=== PATIENT | female | born 1950 | race Caucasian/White ===

== ENCOUNTER 2019-01-12 10:47 | Observation (INO) | payer OTHER ==
[2019-01-12] VITALS (9 sets, daily range): BP systolic 133–166; BP diastolic 66–99
[~2019-01-12] VITALS: Ht 170.2 cm; Wt 103.4 kg
[~2019-01-12 10:47] MED LIST: DEXILANT60 MG PO; GABAPENTIN 100100 MG PO; HYDROXYCHLOROQ200 M1 PO; IBUPROFEN 800800 M1 PO; ULTRAM ER100 MG; [UNRECOGNIZED DRUG - CODE] PO
[2019-01-12] MEDS ORDERED: LISINOPRIL20 MG PO (11:27)
[2019-01-12] MEDS ORDERED: DILTIAZEM 24HR180 M3 PO (11:27)
[2019-01-12] MEDS ORDERED: PROTONIX40 M1 PO (11:28)
[2019-01-12] MEDS ORDERED: AMARYL2 MG PO (11:28)
[2019-01-12] MEDS ORDERED: JANUVIA100 MG PO (11:29)
[2019-01-12] MEDS ORDERED: HYDROXYCHLOROQ200 M1 PO (11:29)
[2019-01-12] MEDS ORDERED: TESSALON PERLE100 MG PO (11:30)
[2019-01-12] MEDS ORDERED: CENTRUM SILVER1 EAC2 PO (11:30)
[2019-01-12 11:52] LABS: HEMATOCRIT 39.3 % (37.0-47.0); HEMOGLOBIN 13.4 gm/dL (12.0-15.0); MCH 32.9 pg (26.0-34.0); MCHC 34.1 g/dL (28.0-37.0); MCV 96.5 fL (80.0-100.0); MPV 9.8 fl. (7.2-11.1); RBC 4.07 mil/uL (4.20-5.00); RDW-CV 14.1 % (10.5-14.5); WBC 4.6 thou/uL (4.0-11.0)
[2019-01-12 11:59] LABS: APTT 24.3 Seconds (25.0-31.3); PROTIME 10.6 Seconds (9.20-11.50)
[2019-01-12 12:02] LABS: ALKALINE PHOSPHATASE 71 U/L (46-116); ANION GAP 9 mmol/L (7-16); BUN 16 mg/dL (7-18); CALCIUM 9.3 mg/dL (8.5-10.1); CHLORIDE 103 mmol/L (98-107); CHOLESTEROL 214 mg/dL (<200); CO2 28 mmol/L (21-32); GLUCOSE 184 mg/dL (70-99); HDL CHOLESTEROL 66 mg/dL (>40); LDL CHOLESTEROL 120 mg/dL (<100); POTASSIUM 4.3 mmol/L (3.5-5.1); SGOT 17 U/L (15-37); SGPT 28 U/L (30-65); SODIUM 140 mmol/L (136-145); TC:HDL 3.2 Ratio (Not establshd); TOTAL BILIRUBIN 0.4 mg/dL (<0.1-1.0); TRIGLYCERIDE 143 mg/dL (<150); VLDL 29 mg/dL (<40)
[2019-01-12 12:03] LABS: SERUM ASSESSMENT Clear
[2019-01-13 04:00] VITALS: BP 143/58
--- NOTE | 2019-01-13 04:39 | NUR ---
INITAL ASSESSMENT COMPLETED CHARTED. TRACING SR ON MONITOR. MEDICATIONS GIVEN PER EMAR. PT UP SBA WITH STEADY GAIT. DRESSING TO RIGHT WRIST C/D/I. HOURLY ROUNDING IN PLACE FOR PT SAFETY. CLWR.
[2019-01-13 05:28] LABS: HEMATOCRIT 34.6 % (37.0-47.0); HEMOGLOBIN 11.8 gm/dL (12.0-15.0); MCH 32.6 pg (26.0-34.0); MCV 95.7 fL (80.0-100.0); MPV 9.8 fl. (7.2-11.1); RBC 3.61 mil/uL (4.20-5.00); RDW-CV 14.1 % (10.5-14.5); WBC 6.3 thou/uL (4.0-11.0)
[2019-01-13 05:49] LABS: ALBUMIN 3.4 g/dL (3.4-5.0); POTASSIUM 4.1 mmol/L (3.5-5.1); TOTAL BILIRUBIN 0.5 mg/dL (<0.1-1.0); TOTAL PROTEIN 6.8 g/dL (6.4-8.2)
[2019-01-13 06:01] LABS: TROPONIN-I LEVEL 1.91 ng/mL (<0.06)
[2019-01-13 10:29] VITALS: BP 143/58
--- NOTE | 2019-01-13 11:33 | NUR ---
ASSUMED CARE OF PATIENT THIS AM AT 0730. PATIENT IS ALERT AND ORIENTED X 4. SHE DENIES CHEST PAIN AND SOA. RIGHT RADIAL CATH SITE IS INTACT. NO HEMATOMA. TELE SHOWS NSR. CARDIOLOGY IN TO ROUND AND DISCHARGE ORDERS WRITTEN. PATIENT MEDICATED FOR RIGHT WRIST PAIN.
[2019-01-13] MEDS ORDERED: BRILINTA90 MG PO (12:11)
[2019-01-13] MEDS ORDERED: ASPIR 8181 MG PO (12:15)
[2019-01-13] MEDS ORDERED: NITROGLYCERIN0.4 MG SUBLING (12:18)
[2019-01-13] MEDS ORDERED: LIPITOR 20 MG T20 M1 PO (12:23)
[2019-01-13 12:39] VITALS: BP 151/57
[2019-01-13 12:42] VITALS: BP 143/58
--- NOTE | 2019-01-13 14:30 | EKG ---
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 : 1950 Requested By: Cam Turner Order Number: [id number] Ciro JOSHUA: Martinez Gutierrez Measurements Intervals [place] Rate: 75 P: 37 NH: 180 QRS: -24 QRSD: 79 T: -12 QT: 452 QTc: 505 Interpretive Statements Sinus rhythm Inferior infarct, age indeterminate Probable anterior infarct, age indeterminate Prolonged QT interval No previous ECG available for comparison Electronically Signed On 01-13-2019 14:30:18 CDT by Martinez Gutierrez [email or web address] <ELECTRONICALLY SIGNED> By: Martinez Gutierrez MD, FAC 01/13/19 1430 1140 1140 Martinez Gutierrez MD, [facility] /EPI
--- NOTE | 2019-01-13 14:33 | EKG ---
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: KEITH : 1950 Requested By: Martinez Gutierrez Order Number: [id number] Ciro MD: Martinez Gutierrez Measurements Intervals [place] Rate: 77 P: 37 MT: 182 QRS: -20 QRSD: 82 T: -14 QT: 404 QTc: 458 Interpretive Statements Sinus rhythm Inferior infarct, 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
--- NOTE | 2019-01-13 14:35 | EKG ---
[place] [address] ELECTROCARDIOGRAM REPORT Name: HILLARY BUTLER Room: [address]R.#: [id number] Admission: 01/12/19 Attend Phys: Cam Turner MD Discharge: 01/13/19 Date of : 50 Report #: [id number] THIS REPORT FOR: //name// 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
--- NOTE | 2019-01-13 14:37 | EKG ---
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: natanael : 1950 Requested By: Martinez Gutierrez Order Number: [id number] Ciro MD: Martinez Gutierrez Measurements Intervals [place] Rate: 80 P: 41 OR: 173 QRS: -15 QRSD: 78 T: -8 QT: 411 QTc: 475 Interpretive Statements Sinus rhythm Inferior infarct, old Anteroseptal infarct, age indeterminate No previous ECG available for comparison Electronically Signed On 01-13-2019 14:37:21 CDT by Martinez Gutierrez [email or web address] <ELECTRONICALLY SIGNED> By: Martinez Gutierrez MD, [facility] 01/13/19 1437 6 6 Martinez Gutierrez MD, FACC /EPI
--- NOTE | 2019-01-13 15:32 | CARD ---
[address] [address] CARDIAC CATH REPORT Name: HILLARY BUTLER Room: [address] Catherine Almonte#: [id number] Admission: 01/12/19 Attend Phys: Cam Turner MD Discharge: 01/13/19 Date of : 50 Report #: [id number] THIS REPORT FOR: //name// APPROVED REPORT Study performed: 01/12/2019 13:12:25 Patient Details Patient Status: Out-Patient Room #: The patient is a 68 year-old female Event Personnel Savi Pyle RN RN, Adriana Romero Monitor, Gilberto Betancur POULTRY FIELD SERVICE TECHNICIAN Scrub, Martin Cobos Scrub, Cam Turner Glass Belt Sander, Martinez Gutierrez Basket Sorter Procedures Performed Left Heart Cath w/LT VGram [id number] LHCLV SARA Revasc Chronic Ttl Occl Single LAD C9607 CTOREVSING , Selective Right and Left Coronary Angiography Indication Positive stress test Risk Factors Hypercholesterolemia, Hypertension Admission/Lab Medications/Medications given during procedure Aspirin, Platelet Aff. Inhib., Angiomax bolus and infusion Procedure Narrative The patient was brought electively to the Cardiac Catheterization Laboratory and was prepped and draped in a sterile manner. The right wrist was infiltrated with 2% Lidocaine subcutaneous anesthesia. A [place] 6 FR sheath was inserted into the . Coronary angiography was performed using coronary diagnostic catheters. The right coronary system was accessed and visualized with a 3DRC 5fr catheter. The left coronary system was accessed and visualized with a JL 3.5 5fr catheter. The left ventricle was accessed and visualized with a PC: Angled Pig 5fr catheter. Left ventricular/Aortic Valve gradient assessed via catheter pullback. The patient tolerated the procedure well and there were no complications associated with the procedure. There was no hematoma. Intra[place] [address] CARDIAC CATH REPORT Name: HILLARY BUTLER DIANA Room: [address] Catherine M.R.#: [id number] Admission: 01/12/19 Attend Phys: Cam Turner MD Discharge: 01/13/19 Date of : 50 Report #: [id number] Fentanyl 175 mcg Dose: 107 mGy Contrast Type and Amount: Visipaque 580 ml Coronary Angiography The patient's coronary anatomy is right dominant. Diagnostic Cath Left Main 0% narrowing LAD 80% heavily calcified proximal LAD stenosis with 100% mid vessel stenosis with ALLEY-3 flow the distal LAD via Micro- channels in the mid LAD Circumflex 0% narrowing Right Coronary Dominant vessel with 20% mid vessel narrowing Left Ventriculography The left ventricle is normal in size with contractility. The left ventricular ejection fraction is estimated to be 55-60%. Left ventricular wall motion abnormalities are present. Apical dyskinesis is noted Hemodynamics The aortic pressure is 109/54 mmHg with a mean of 78 mmHg. The left ventricular end diastolic pressure is 8 mmHg. There was no gradient across the aortic valve upon pullback. PCI Technique Lesion Anticoagulation was achieved with Angiomax. Patient was preloaded with Angiomax IV 16 ml. Percutaneous coronary intervention was performed on the mid left anterior descending artery segment. The lesion stenosis prior to intervention was 100% with ALLEY 3 flow. A 6F XB LAD 3.5 Guide Catheter was used to engage the ostium. A IG: ProwaterFlex 180CM Interventional Guidewire was used to cross the lesion. BALLOON DILATION A Balloon catheter Mini Trek RX 1.2X8 was inserted and inflated up to 14.00atm for 8seconds. Additional Inflation: 18.00atm for 11seconds. STENT DEPLOYMENT A drug-eluting stent Jordan RX Stent 2.18R10wh was inserted and inflated up to 18.00atm for 16seconds. POST STENT DEPLOYMENT [place] [address] CARDIAC CATH REPORT Name: HILLARY BUTLER DIANA Room: [address]#: [id number] Admission: 01/12/19 Attend Phys: Cam Turner MD Discharge: 01/13/19 Date of : 50 Report #: [id number] A Balloon catheter NC Trek RX 2.5 X 12 was inserted and inflated up to 14.00atm for 3seconds. Final angiography reveals 0 % stenosis with ALLEY 3 flow. COMMENTS I was able to wire the area of chronic total occlusion the mid LAD by advancing a support catheter, a fine cross catheter and traversing the Micro- channels with a soft tip wire and subsequently 1.2 x 8 mm trek PCI Technique Lesion 2 Percutaneous Coronary Intervention was performed on the proximal left anterior descending artery segment. The lesion stenosis prior to intervention was 80% with ALLEY 3 flow. Balloon Dilation A Balloon catheter AngioSculpt PTCA 2.5 X 10mm was inserted and inflated up to 18atm for 15seconds. Stent Deployment A drug-eluting stent Jordan RX Stent 2.22L59db was inserted and inflated up to 15.00atm for 16seconds. Final angiography reveals 10 % stenosis with ALLEY 3 flow. Comments I performed angioplasty atherotomy/atherectomy and stenting of the proximal LAD, heavily calcified segment Conclusion #1 significant coronary artery disease characterized by the following: A 80% heavily calcified proximal LAD stenosis with 100% chronic total occlusion of the mid LAD with filling of the distal LAD via microchannels B 20% narrowing of the midportion of the dominant right coronary artery #2 normal global left ventricular systolic function estimate ejection fraction of 55-60% with apical dyskinesis #3 normal left-[place] [address] CARDIAC CATH REPORT Name: HILLARY BUTLER Room: [address] Catherine Almonte#: [id number] Admission: 01/12/19 Attend Phys: Cam Turner MD Discharge: 01/13/19 Date of : 50 Report #: [id number] #4 successful percutaneous coronary intervention with recanalization a chronic total occlusion of the mid LAD and deployment of a drug-eluting stent with 0% residual narrowing #5 successful angioplasty arthrotomy/atherectomy and stenting of the proximal LAD with 10% residual narrowing and ALLEY-3 flow to the distal vessel Recommendations Cardiac Risk Reduction Program Aggressive Medical Therapy Medications Administered Aspirin (any) Ticagrelor Diagnostic Cath Approved by: Cam Turner MD Date/Time: 01/13/2019 15:30:14 <ELECTRONICALLY SIGNED> By: Martinez Gutierrez MD, FACC 01/13/19 1532 153 [id number] Gutierrez MD, FACC /INF
--- NOTE | 2019-01-15 11:33 | D ---
[address] [address] DISCHARGE SUMMARY Name: HILLARY BUTLER Room: [address] Catherine Almonte#: [id number] Admission: 01/12/19 Attend Phys: Cam Turner MD Discharge: 01/13/19 Date of : 50 Report #: [id number] THIS REPORT FOR: //name// CC: Cam CuetoStella DATE OF SERVICE: 01/13/2019 FINAL DISCHARGE DIAGNOSES: 1. Chest discomfort. 2. Abnormal stress echocardiogram. 3. Coronary artery disease. 4. Hypertension. 5. Dyspnea on exertion. 6. Diabetes mellitus. 7. Hyperlipoproteinemia. PROCEDURES: 01/12/2019 -- left heart catheterization, left ventriculography, selective coronary arteriography, percutaneous coronary intervention to chronic total occlusion of the mid LAD and high-grade proximal LAD stenosis. The patient is a pleasant 68-year-old female with dyspnea on exertion and some chest discomfort. She had a recently abnormal stress echocardiogram, and Dr. Turner recommended proceeding with cardiac catheterization in that context with the risk factors of diabetes and hyperlipidemia as well as hypertension. He performed cardiac catheterization on 01/12/2019 which revealed chronic total occlusion in the mid LAD with 80% calcified proximal LAD stenosis. There were modest narrowings of the right coronary artery and circumflex. I performed percutaneous coronary intervention with recanalization of the chronic total occlusion of the mid LAD with atherectomy and stenting of the proximal LAD with a 10% proximal and 0% mid LAD narrowings following the aforementioned intervention with ALLEY 3 flow of the distal vessel. Troponin daria minimally to 1.91 after recanalization of the SUPERVISOR BOAT OUTFITTING of the mid LAD. The patient had no chest discomfort and ambulated in the hallways without difficulty. There was good hemostasis at the right radial site of catheterization. LABORATORY DATA: On 01/13 revealed sodium 149, potassium 4.1, BUN 13, creatinine 1.0. White blood cell count 6300, with hemoglobin 11.8, hematocrit 34.6, platelets 174,000. The patient was discharged to home on the following medications: Aspirin 81 mg daily, diltiazem extended release 180 mg daily, gabapentin [address] t[address] [place] [address] DISCHARGE SUMMARY Name: HILLARY BUTLER [facility] Room: [address] Catherine Almonte#: [id number] Admission: 01/12/19 Attend Phys: Cam Turner MD Discharge: 01/13/19 Date of : 50 Report #: [id number] glimepiride 2 mg b.i.d., hydroxychloroquine 200 mg 2 tablets daily, ibuprofen 800 mg q.8 hours as needed, lisinopril 20 mg b.i.d., multivitamin with mineral one tablet daily, pantoprazole 40 mg b.i.d., Januvia 100 mg daily, ticagrelor or Brilinta 90 mg b.i.d. with 180 mg loading dose given periprocedurally, Tessalon Perles 2 tablets 100 mg t.i.d. p.r.n., p.r.n. sublingual nitroglycerin, atorvastatin 40 mg at bedtime with an LDL cholesterol noted to be 120 mg percent. She is scheduled to see nurse practitioner in approximately 2 weeks for clinical followup. <ELECTRONICALLY SIGNED> By: Martinez Gutierrez MD, [facility] 01/15/19 1133 1008 [id number] Gutierrez MD, FAC /nt
== END 2019-01-13 13:30 | disposition home or self-care (01) ==
LOC: M.CL 10:47 → M.TBA-CV 16:19 → M.2W 16:19
PROVIDERS: Internal Medicine; ADMIT Internal Medicine Cardiovascular Disease
DX: I25.10 Atherosclerotic heart disease of native coronary artery without angina pectoris (principal); I10 Essential (primary) hypertension; E11.9 Type 2 diabetes mellitus without complications; E78.5 Hyperlipidemia, unspecified; E78.00 Pure hypercholesterolemia, unspecified; R06.09 Other forms of dyspnea; R94.39 Abnormal result of other cardiovascular function study

== ENCOUNTER 2019-06-21 12:19 | Observation (INO) | payer OTHER ==
[~2019-06-21] VITALS: Ht 170.2 cm; Wt 94.8 kg
[2019-06-21] VITALS (14 sets, daily range): BP systolic 125–168; BP diastolic 53–82
[~2019-06-21 12:19] MED LIST changes: +AMARYL2 MG PO; +ASPIR 8181 MG PO; +BRILINTA90 MG PO; +CENTRUM SILVER1 EAC2 PO; +DILTIAZEM 24HR180 M3 PO; +JANUVIA100 MG PO; +LIPITOR 20 MG T20 M1 PO; +LISINOPRIL20 MG PO; +NITROGLYCERIN0.4 MG SUBLING; +PROTONIX40 M1 PO; +TESSALON PERLE100 MG PO
[2019-06-21 13:08] LABS: HEMATOCRIT 38.2 % (37.0-47.0); HEMOGLOBIN 13.1 gm/dL (12.0-15.0); MCH 33.8 pg (26.0-34.0); MCHC 34.3 g/dL (28.0-37.0); MCV 98.6 fL (80.0-100.0); MPV 9.8 fl. (7.2-11.1); RBC 3.88 mil/uL (4.20-5.00); WBC 5.2 thou/uL (4.0-11.0)
[2019-06-21] MEDS ORDERED: EFFIENT10 MG PO (13:16)
[2019-06-21 13:18] LABS: APTT 21.3 Seconds (25.0-31.3); INR 1.2; PROTIME 12.2 Seconds (9.20-11.50)
[2019-06-21 13:27] LABS: ANION GAP 6 mmol/L (7-16); BUN 17 mg/dL (7-18); CALCIUM 9.5 mg/dL (8.5-10.1); CHLORIDE 104 mmol/L (98-107); CO2 30 mmol/L (21-32); GLUCOSE 104 mg/dL (70-99); POTASSIUM 3.7 mmol/L (3.5-5.1); SODIUM 140 mmol/L (136-145)
[2019-06-21 13:31] LABS: ALBUMIN 4.1 g/dL (3.4-5.0); ALKALINE PHOSPHATASE 113 U/L (46-116); CHOLESTEROL 152 mg/dL (<200); HDL CHOLESTEROL 73 mg/dL (>40); LDL CHOLESTEROL 68 mg/dL (<100); SERUM ASSESSMENT Clear; SGOT 33 U/L (15-37); SGPT 57 U/L (30-65); TC:HDL 2.1 Ratio (Not establshd); TOTAL BILIRUBIN 0.3 mg/dL (<0.1-1.0); TRIGLYCERIDE 59 mg/dL (<150); VLDL 12 mg/dL (<40)
[2019-06-21] MEDS ORDERED: ACTOS 30 MG TAB30 M1 PO (19:00)
[2019-06-22] VITALS: BP 118/46
[2019-06-22 04:00] VITALS: BP 128/48
--- NOTE | 2019-06-22 04:29 | NUR ---
Pt c/o nausea after getting out of bed when bed rest completed. Nausea subsided after getting back in bed and taking acetaminophen for discomfort at Rt groin. Nausea returned later in shift. More acetaminophen given per pt request early this am. Also requesting antiemetic. Awaiting call back from second worker. Rt groin stable. Will continue to monitor.
[2019-06-22 05:14] LABS: HEMATOCRIT 31.5 % (37.0-47.0); MCH 34.6 pg (26.0-34.0); MCV 98.9 fL (80.0-100.0); MPV 9.2 fl. (7.2-11.1); RBC 3.19 mil/uL (4.20-5.00); RDW-CV 13.9 % (10.5-14.5); WBC 5.9 thou/uL (4.0-11.0)
[2019-06-22 05:22] LABS: ALBUMIN 3.2 g/dL (3.4-5.0); CALCIUM 8.7 mg/dL (8.5-10.1); CREATININE 0.8 mg/dL (0.6-1.3); POTASSIUM 3.9 mmol/L (3.5-5.1); TOTAL BILIRUBIN 0.4 mg/dL (<0.1-1.0); TOTAL PROTEIN 6.3 g/dL (6.4-8.2); TROPONIN-I LEVEL 0.2 ng/mL (<0.06)
[2019-06-22 07:55] VITALS: BP 139/62
[2019-06-22 09:03] VITALS: BP 139/62
--- NOTE | 2019-06-22 09:04 | NUR ---
ASSUMED CARE OF PT THIS AM AROUND 0715- EMPLOYEE SERVICES MANAGER IN PLACE ORDERED, TRACING SR- UPON ASSESSMENT PT NOTED TO BE RESTING IN BED, WATCHING TV- PT A&O X4- CONTINENT OF BOWEL AND BLADDER- SBA FOR SAFETY WITH TRANSFERS- LCTA, RESP EVEN AND UN-LABORED- VSS, O2 SAT 95% ON RA- ABD SOFT/ROUND/NON-TENDER, BS X4 QUADS- LAST REPORTED X2 DAYS AGO- IV NOTED TO RIGHT AC INTACT, AND SL- RIGHT GROIN WITH DRESSING NOTED C/D/I, BRUISING NOTED WITH NO HEMATOMA- GOOD PO INTAKE NOTED THIS AM WITH BREAKFAST, BS MONITORED ORDERED, CONTROLLED PER ORAL MEDICATIONS- CAll LIGHT AND PERSONAL BELONGINGS WITH IN REACH- PT MAKES NEEDS KNOWN- ALL NEEDS MET AT THIS TIME-WCTM
[2019-06-22 09:25] VITALS: BP 139/62
[2019-06-22 09:52] VITALS: BP 139/62
--- NOTE | 2019-06-22 10:41 | NUR ---
ORDERS RECIEVIED FOR OKAY TO D/C THIS SHIFT PER - IV TO RIGHT AC D/C'D ALONG WITH HEAVY DUTY MECHANIC PRIOR TO D/C- D/C TEACHING/EDUCATION/NEEDED FOLLOW UP'S COMMUNICATED TO PT WITH ALL QUESTIONS AND CONCERNS ADDRESSED PRIOR TO D/C- WRITTEN EDUCATION ALONG WITH RETURN WORK FORM GIVEN TO PT PRIOR TO D/C- PT BELONGINGS PACKED AND ACCOUNTED FOR PER PT AND - PT ESCORTED PER TECH VIA W/C WITH BELONGINGS; AT SIDE TO VEHICLE AT 1045- NO PROBLEMS TO NOTE AT TIME OF D/C
--- NOTE | 2019-06-22 10:51 | CARD ---
[address] [address] CARDIAC CATH REPORT Name: BUTLERHILLARY DIANA Room: [address] Catherine Almonte#: [id number] Admission: 06/21/19 Attend Phys: Martinez Gutierrez MD, Discharge: 06/22/19 Date of : 50 Report #: [id number] THIS REPORT FOR: //name// APPROVED REPORT Study performed: 06/21/2019 14:12:23 Patient Details The patient is a 69 year-old female Event Personnel Martinez Gutierrez [employer] Attendant, Savi Pyle RN Envelope Sealing Machine Operator, Gilberto BetancurIS Scrub, Amalia Sin RTMaryam Monitor Procedures Performed Art Access - R femoral artery* Left Heart Cath w/or w/o Coronaries [id number] [facility] PTCA Single Vessel LAD [id number] [facility] Place w/wo Plasty Single DIAG [id number] Indication Unstable angina Risk Factors Hypercholesterolemia, Hypertension Admission/Lab Medications/Medications given during procedure Oxygen Nasal cannula 2 l per min, Midazolam (Versed) IV 2 mg, Fentanyl IV 50 mcg, Lidocaine Subcut 15 ml, Angiomax IV 14 mg per kg, Angiomax Drip IV 33 ml per hr, Aspirin PO 81 mg, Effient PO 30 mg Procedure Narrative The patient was brought electively to the Cardiac Catheterization Laboratory and was prepped and draped in a sterile manner. The right femoral was infiltrated with 1% Lidocaine subcutaneous anesthesia. A [place] 6 FR sheath was inserted into the right femoral artery. Coronary angiography was performed using coronary diagnostic catheters. The right coronary system was accessed and visualized with a 6F JR4 catheter. The left coronary system was accessed and visualized with a 6F JL4 catheter. The left ventricle was accessed and visualized with a 6F Pigtail catheter. Left ventricular/Aortic Valve gradient assessed via catheter pullback. Left ventriculogram was performed in TAYLOR projection. Closure device was deployed with a 6 Fr Angioseal STS 6Fr. The patient tolerated the procedure well and there were no complications associated with [place] [address] CARDIAC CATH REPORT Name: JANENE BUTLERYCE DIANA Room: [address] Catherine Almonte#: [id number] Admission: 06/21/19 Attend Phys: Martinez Gutierrez MD, Discharge: 06/22/19 Date of : 50 Report #: [id number] no hematoma. Intraoperative Conscious Sedation Sedation start time: 14:43 Case end Time: 15:32 Fentanyl 50 mcg Versed 2 mg Fluoro Time: 10.7 minutes Dose: DAP [id number] cGycm2 1948 mGy Contrast Type and Amount: Visipaque 260 ml Diagnostic Cath Left Main 0% narrowing LAD Widely patent proximalmid LAD stent with 30% mid LAD narrowing; was 90% ostial proximal first diagonal stenosis Circumflex Nondominant vessel with 0% narrowing Right Coronary Dominant vessel with 30% proximal narrowing, suggesting mild catheter induced spasm Left Ventriculography The left ventricle is normal in size with normal contractility. The left ventricular ejection fraction is estimated to be 60%. Left ventricular wall motion abnormalities are not present. There is no mitral insufficiency. IVUS Anticoagulation was achieved with . Angiomax Intravascular Ultrasound was performed on the proximal left anterior descending artery segment vessel. A Guide Catheter was used to engage the 6F XB LAD 3.5 ostium. A IG: BMW 190cm was used. IVUS Findings NC Trek RX 3.0 X 8 Hemodynamics The aortic pressure is 166/56 mmHg with a mean of 92 mmHg. The left ventricular pressure is 161/-3 mmHg with a mean of mmHg. The left ventricular end diastolic pressure is 11 mmHg. There was no gradient across the aortic valve upon pullback. PCI Technique Lesion Anticoagulation was achieved with Angiomax. Patient was preloaded with Angiomax IV 14 mg per kg. Percutaneous coronary intervention was performed on the first diagnonal branch segment. The lesion stenosis prior to intervention was 90% with ALLEY 3 flow. A 6F XB LAD 3.5 [place] [address] CARDIAC CATH REPORT Name: HILLARY BUTLER Room: [address] Catherine M.RNadia#: [id number] Admission: 06/21/19 Attend Phys: Martinez Gutierrez MD, Discharge: 06/22/19 Date of : 50 Report #: [id number] Catheter was used to engage the LCA ostium. A IG: ProwaterFlex 180CM Interventional Guidewire was used to cross the lesion. BALLOON DILATION A Balloon catheter Mini Trek RX 2.0 X 8 was inserted and inflated up to 12.00atm for 15seconds. Additional Inflation: 12.00atm for 10seconds. STENT DEPLOYMENT A drug-eluting stent [place] RX Stent 2.0X12mm was inserted and inflated up to 10.00atm for 9seconds. Additional Inflation: 14.00atm for 9seconds. Additional Inflation: 17.00atm for 9seconds. Final angiography reveals 0 % stenosis with ALLEY 3 flow. PCI Technique Lesion Anticoagulation was achieved with Angiomax. Patient was preloaded with Angiomax IV 14 mg per kg. Percutaneous coronary intervention was performed on the proximal left anterior descending artery segment. A 6F XB LAD 3.5 Guide Catheter was used to engage the ostium. A IG: BMW 190cm Interventional Guidewire was used to cross the lesion. BALLOON DILATION A Balloon catheter NC Trek RX 3.0 X 8 was inserted and inflated up to 16atm for 10seconds. Additional Inflation: 20atm for 8seconds. Final angiography reveals 10 % stenosis with ALLEY 3 flow. PCI Technique Lesion 3 Percutaneous Coronary Intervention was performed on the proximal left anterior descending artery segment. Conclusion #1 significant coronary artery disease characterized by the following: A widely patent proximalmid LAD stent with 30% mid LAD narrowing 90% ostial first diagonal stenosis B 0 percent left main and nondominant circumflex narrowing C 30% ostial proximal right coronary narrowing, this being a dominant vessel, narrowing suggesting catheter induced spasm #2 normal left ventricular systolic function, estimate ejection fraction being 60% [facility] [address] [place] [address] CARDIAC CATH REPORT Name: HILLARY BUTLER Room: [address] M.R.#: [id number] Admission: 06/21/19 Attend Phys: Martinez Gutierrez MD, Discharge: 06/22/19 Date of : 50 Report #: [id number] #3 modest systemic systolic hypertension #4 successful percutaneous coronary intervention with deployment of a drug-eluting stent at site of 90% ostial proximal first diagonal stenosis with 0% residual narrowing #5 angioplasty at the ostium of the diagonal and stent in the proximal LAD with a 3.0 x 8 mm NC trek inflated to 20 cait with 10% residual narrowing of the LAD in this segment Recommendations Cardiac Risk Reduction Program Aggressive Medical Therapy Medications Administered Aspirin (any) Prasugrel Diagnostic Cath Approved by: Martinez Gutierrez MD Date/Time: 06/22/2019 10:48:40 <ELECTRONICALLY SIGNED> By: Martinez Gutierrez MD, [facility] 06/22/19 1051 1051 1051Martinez Gutierrez MD, FAC /INF
--- NOTE | 2019-06-22 11:21 | D ---
[address] [address] DISCHARGE SUMMARY Name: HILLARY BUTLER Room: [address] Catherine Almonte#: [id number] Admission: 06/21/19 Attend Phys: Martinez Gutierrez MD, Discharge: 06/22/19 Date of : 50 Report #: [id number] THIS REPORT FOR: //name// CC: Martinez Etienne [facility] FINAL DISCHARGE DIAGNOSES: 1. Unstable angina. 2. Status post percutaneous coronary intervention to the first diagonal branch of the LAD with angioplasty of the LAD itself. 3. Status post prior percutaneous coronary intervention to chronic total occlusion of the proximal-mid LAD in the spring. 4. Hypertension. 5. Hyperlipidemia. 6. Type 2 diabetes. PROCEDURES: On 06/21/2019 -- left heart catheterization, left ventriculography, selective coronary arteriography and percutaneous coronary intervention with stenting of the first diagonal branch and angioplasty of the LAD at the site from which the diagonal emanated. The patient is a very pleasant 69-year-old female who presented in the spring of this year with unstable angina and underwent stenting or chronic total occlusion of the proximal LAD with a good angiographic result. 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 In the context of known coronary artery disease and risk factors of hypertension, hyperlipidemia and diabetes, I performed recatheterization on 06/21/2019, which revealed a widely patent LAD stent, but 90% ostial stenosis of the first diagonal as it emanated from a stented region. I dilated and then stented the first diagonal with a 2.0 x 12 mm [place] drug-eluting stent, deployed to 14 atmospheres. I then dilated the LAD in the region which the diagonal emanated with a 3.0 x 8 mm NC Trek inflated to 20 atmospheres. There was 0% residual narrowing of the first diagonal and 10% residual narrowing of the LAD. The patient did well post-procedurally. There was good hemostasis at the right femoral site of catheterization. LABORATORY DATA: On 06/22/2019; revealed sodium 141, potassium 3.9, BUN 14, creatinine 0.8, glucose 148. Hemoglobin 11.0, white blood cell count 5900 with 156,000 platelets. Troponin daria inconsequentially to 0.20. The patient ambulated in the hallways without difficulty. She was discharged to home in stable condition on 06/22/2019 on the following medications: Aspirin 81 mg daily, atorvastatin 40 mg daily, diltiazem extended release 180 mg daily, gabapentin 600 mg at bedtime, glimepiride or Amaryl 2 mg 2 tablets b.i.d., hydroxychloroquine, Plaquenil 200 mg 2 tablets daily, ibuprofen 800 mg q.8 hours as needed, lisinopril 20 mg b.i.d., Centrum Silver 1 [place] [address] DISCHARGE SUMMARY Name: HILLARY BUTLER Room: [address] Catherine Almonte#: [id number] Admission: 06/21/19 Attend Phys: Martinez Gutierrez MD, Discharge: 06/22/19 Date of : 50 Report #: [id number] daily, pantoprazole 40 mg b.i.d., pioglitazone or Actos 30 mg at bedtime, prasugrel 10 mg daily with 30 mg periprocedural dose having been administered, Tessalon Perles 100 mg capsule p.o. t.i.d. p.r.n., and p.r.n. sublingual nitroglycerin. I will plan to see the patient in followup on 07/13/2019 at 09:40 at the [facility] office. Therefore, the patient is discharged to home in stable condition on the aforementioned medications with followup as described above. <ELECTRONICALLY SIGNED> By: Martinez Gutierrez MD, [facility] 06/22/19 1121 0913 0928Martinez Gutierrez MD, FAC /nt
--- NOTE | 2019-06-22 15:03 | EKG ---
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1950 Requested By: Martinez Gutierrez Order Number: [id number] Ciro MD: Martinez Gutierrez Measurements Intervals [place] Rate: 67 P: 47 NH: 166 QRS: -18 QRSD: 83 T: -2 QT: 410 QTc: 433 Interpretive Statements Sinus rhythm Inferior infarct, old Anteroseptal infarct, old Compared to ECG 01/13/2019 03:07:39 No significant changes Electronically Signed On 06-22-2019 15:02:55 CDT by Martinez Gutierrez [email or web address] <ELECTRONICALLY SIGNED> By: Martinez Gutierrez MD, [facility] 06/22/19 1502 1310 1310 Martinez Gutierrez MD, [facility] /EPI
--- NOTE | 2019-06-22 16:42 | EKG ---
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
--- NOTE | 2019-06-22 16:55 | EKG ---
[place] [address] ELECTROCARDIOGRAM REPORT Name: HILLARY BUTLER Room: [address] M..#: [id number] Admission: 06/21/19 Attend Phys: Martinez Gutierrez MD, Discharge: 06/22/19 Date of : 50 Report #: [id number] THIS REPORT FOR: //name// 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
== END 2019-06-22 10:45 | disposition home or self-care (01) ==
LOC: M.CL 12:19 → M.TBA-CV 15:49 → M.2W 18:13
PROVIDERS: ADMIT Internal Medicine
DX: I25.110 Atherosclerotic heart disease of native coronary artery with unstable angina pectoris (principal); E78.5 Hyperlipidemia, unspecified; E11.9 Type 2 diabetes mellitus without complications; I11.0 Hypertensive heart disease with heart failure; I50.32 Chronic diastolic (congestive) heart failure; R53.83 Other fatigue; I65.29 Occlusion and stenosis of unspecified carotid artery; R00.2 Palpitations; Z79.82 Long term (current) use of aspirin; Z79.899 Other long term (current) drug therapy; Z79.4 Long term (current) use of insulin; Z95.5 Presence of coronary angioplasty implant and graft

== ENCOUNTER 2019-06-24 16:37 | Inpatient (IN) | payer OTHER ==
[~2019-06-24] VITALS: Ht 170.2 cm; Wt 105.7 kg
--- NOTE | ~2019-06-24 | H ---
[address] [address] HISTORY AND PHYSICAL Name: HILLARY BUTLER Room: [address] IN M.R.#: [id number] Admission: 06/24/19 Attend Phys: Bebe garcia [facility] Discharge: 06/25/19 Date of : 50 Report #: [id number] THIS REPORT FOR: //name// For History and Physical please refer to the consultation note in the patient's medical record. By: [facility]9Medical Records Staff AMIRA /MANDEEP
[~2019-06-24 16:37] MED LIST changes: +ACTOS 30 MG TAB30 M1 PO; +EFFIENT10 MG PO
[2019-06-24 19:01] VITALS: BP 153/63
[2019-06-24 20:00] VITALS: BP 156/53
[2019-06-25] VITALS: BP 135/47
[2019-06-25 04:29] VITALS: BP 119/40
[2019-06-25 08:08] VITALS: BP 132/49
[2019-06-25 11:51] VITALS: BP 131/54
[2019-06-25 14:12] LABS: URINE BILIRUBIN NEGATIVE (Negative); URINE BLOOD 3+ (Negative); URINE CLARITY CLEAR; URINE COLOR YELLOW; URINE GLUCOSE-RANDOM NEGATIVE (Negative); URINE KETONES NEGATIVE (Negative); URINE LEUKOCYTES 2+ (Negative); URINE NITRITE POSITIVE (Negative); URINE PROTEIN NEGATIVE (Negative); URINE UROBILINOGEN 0.2 E.U./dl (0.2-1.0)
[2019-06-25 14:24] LABS: SQUAMOUS 0-3 Few /LPF (0-3); URINE WBC >25 Many /HPF (0-5)
[2019-06-25 14:25] LABS: BACTERIA >30 Many /HPF (None Seen); CASTS None Seen /LPF (None Seen); CRYSTALS None Seen /LPF (None Seen); URINE RBC 3-10 Few /HPF (0-2)
[2019-06-25] MEDS ORDERED: ELIQUIS5 MG PO (14:54)
[2019-06-25] MEDS ORDERED: MACROBID 100 M100 M2 PO (16:14)
[2019-06-25 16:18] VITALS: BP 133/44
[2019-06-25] MEDS ORDERED: MACROBID 100 M100 MG PO (16:19)
--- NOTE | 2019-06-25 16:21 | CON ---
[address] [address] CONSULTATION Name: HILLARY BUTLER Room: [address] IN M.R.#: [id number] Admission: 06/24/19 Attend Phys: Bebe Cardenas Discharge: Date of : 50 Report #: [id number] THIS REPORT FOR: //name// CC: Bebe Magaña MD DATE OF SERVICE: 06/25/2019 CARDIOLOGY CONSULTATION HISTORY OF PRESENT ILLNESS: The patient is a 69-year-old white female who I was asked to see in the hospital today after she was found to have evidence of deep venous thrombosis. The patient has a long history of hypertension, diabetes, and hyperlipidemia. She presented this past spring with exertional chest pain. She was actually seen by Dr. Turner at that time. She has felt having angina. She underwent a cardiac catheterization by Dr. Gutierrez here at [facility] on 01/12 from the right radial artery. Arteriogram showed chronic occlusion of the LAD in the mid portion of the vessel with an 80% stenosis proximally. He then performed angioplasty of the chronic occlusion with atherectomy and stenting and achieved ALLEY 3 flow. SHE WAS INITIALLY GIVEN BRILINTA, BUT APPARENTLY DEVELOPED A RASH. She was then switched to Effient, which she has been on since that time. She denied any bleeding problems. She initially did well, but recently had recurrent chest discomfort. Dr. Gutierrez actually performed a repeat heart catheterization from the right femoral artery 5 days ago here at [facility]. Results showed widely patent LAD with no significant restenosis, ejection fraction of 60%. There was a 90% narrowing of the ostium of the first diagonal branch. She was given Angiomax. He then performed angioplasty of the diagonal branch and placed a drug-eluting stent in the diagonal artery. There was no significant disease in the circumflex and right coronary artery. Ejection fraction was 60%. She notes that, after the procedure 5 days ago, she felt some discomfort in her right thigh. She did have some discomfort in the right groin, which was noted to be bruised. A closure device was placed. She was discharged the following day and since that time continues to have discomfort in her right thigh. She denied any swelling. She finally went to Dr. Gutierrez' office yesterday and she was referred to the Emergency Room here at [facility]. She underwent an ultrasound of the right groin that showed no pseudoaneurysm or fistula. There was, however, an occlusive thrombus in the common femoral vein and proximal femoral vein in the thigh, as well as thrombus in the iliac vein. She was sent to the Emergency Room and admitted. She was placed on intravenous heparin. I was asked to see her for further evaluation and treatment. She denies any bleeding, fever or trauma to the leg, denied any recent long car ride or plane ride. She has had no previous history of blood clots. PAST MEDICAL HISTORY: Significant for no major surgical procedures[place] [address] CONSULTATION Name: HILLARY BUTLER Room: [address] IN M.R.#: [id number] Admission: 06/24/19 Attend Phys: Bbee Cardenas Discharge: Date of : 50 Report #: [id number] history of hypertension, diabetes, and hyperlipidemia. MEDICATIONS: On admission consisted of following: She is on Effient 10 mg a day, aspirin 81 mg a day, Lipitor 20 mg a day, Cardizem CD 180 mg a day, Neurontin 2 mg twice a day, lisinopril 20 mg a day, and Protonix 40 mg a day. FAMILY HISTORY: Her mother has heart disease. SOCIAL HISTORY: She is . She and her live in [place], [place]. 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 No smoking or alcohol abuse. REVIEW OF SYSTEMS: She has had no history of stroke, asthma, peptic ulcer disease, liver disease, kidney disease. She has had a skin cancer removed in the past. She wears glasses. No chronic skin condition. PHYSICAL EXAMINATION: GENERAL: Revealed an elderly female, lying in bed. She appeared in no distress. VITAL SIGNS: Blood pressure 130/60, pulse is 80, she is afebrile. HEENT: She was anicteric. Conjunctivae are pink. Mucous membranes moist. NECK: Veins do not appear distended. No carotid bruits. Neck supple. CHEST: Clear to auscultation. CARDIOVASCULAR: Regular rate and rhythm. ABDOMEN: Soft. EXTREMITIES: She had a tender right groin. There did appear to a 5 cm firm nodule consistent with a hematoma. There was no oozing. The right lower extremity had no edema. Dorsalis pedis pulse on the right could not be palpated. Left dorsalis pedis pulse 2+. SKIN: Cool and dry. NEUROLOGIC: Nonfocal. LYMPH: No adenopathy. MUSCULOSKELETAL: No joint effusion. RADIOLOGICAL DATA: ECG was not performed on the monitor; however, she appeared to be in a sinus rhythm. Lab work in the Emergency Room: Sodium 141, creatinine 0.8, glucose 148. Troponin was 0.2. Recent cholesterol 152, triglyceride 59, HDL 73, LDL 68. White blood cell count 5.9, hemoglobin 11.0, it was 13 yesterday, and platelet count 156,000. IMPRESSION AND RECOMMENDATIONS: 1. Deep venous thrombosis, following cardiac catheterization and stenting. Recommend anticoagulation. 2. Recent stents. I would continue aspirin and Effient. 3. Hypertension. The patient is on lisinopril [place] [address] CONSULTATION Name: HILLARY BUTLER Room: [address] IN [facility].#: [id number] Admission: 06/24/19 Attend Phys: Bebe cum[place]ings [place] Discharge: Date of : 50 Report #: [id number] 4. Hyperlipidemia. The patient is on a statin drug. 5. Diabetes. <ELECTRONICALLY SIGNED> By: Thiago Slater MD, FACC 06/25/19 1621 0856 0932Dawillis Slater MD, FACC /nt
[2019-06-25 16:39] VITALS: BP 133/44
== END 2019-06-25 18:14 | disposition home or self-care (01) | DRG 301 ==
LOC: M.ULTRA 16:37 → M.2W 18:00
PROVIDERS: Internal Medicine Cardiovascular Disease; ADMIT Family Medicine
DX: I82.411 Acute embolism and thrombosis of right femoral vein (principal); I10 Essential (primary) hypertension; E78.5 Hyperlipidemia, unspecified; E11.40 Type 2 diabetes mellitus with diabetic neuropathy, unspecified; K21.9 Gastro-esophageal reflux disease without esophagitis; I25.10 Atherosclerotic heart disease of native coronary artery without angina pectoris; Z82.49 Family history of ischemic heart disease and other diseases of the circulatory system; Z23 Encounter for immunization